=== PATIENT | male | born 1975 | race Caucasian/White ===

== ENCOUNTER 2016-11-27 18:24 | Emergency (ER) | payer SELFPAY ==
[2016-11-27 18:37] VITALS: BP 141/89; BMI 25.0
--- NOTE | 2016-11-27 19:34 | RAD ---
HISTORY: Trauma. Study: Three views of the left foot. Comparison: Left foot series dated October 21, 2010. Findings: Mild degenerative changes are seen about the left foot and ankle. Calcaneal enthesophytes. No acute c ortical disruption or dislocation can be identified. No significant soft tissue swelling or injury c an be seen. IMPRESSION: No acute osseous abnormality. Reported By:
[2016-11-27] MEDS ORDERED: CLEOCIN 300 MG IV PREMIX 300 MG/50 ML BAG IV ONE ×2 (20:17→20:20)
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
[2016-11-27] MEDS ORDERED: CLEOCIN 600 MG IV PREMIX 600 MG/50 ML BAG IV ONE (20:18)
--- NOTE | 2016-11-27 20:19 | RAD ---
HISTORY: Trauma to left leg. Study: Four views of the left tibia/fibula. Comparison: None. Findings: Minimally displaced medial malleolus fracture with associated soft tissue swelling and effusion. The talar dome and ankle mortise appear intact. Remaining osseous structures appear intact. Likely fibrou s talocalcaneal coalition. Calcaneal enthesophyte. IMPRESSION: Medial malleolus fracture as above. Reported By:
[2016-11-27] MEDS ORDERED: NS 1000 ML 1,000 ML ONE (20:20)
[2016-11-27] MEDS ORDERED: CLEOCIN VIAL 600 MG ONE (20:20)
[2016-11-27] MEDS ORDERED: DILAUDID INJ ONE (20:21)
[2016-11-27] MEDS ORDERED: NS 50 ML IV 50 ML IV ONE (20:22)
[2016-11-27 20:44] LABS: BASOPHILS % (AUTO) 0.8 % (0.2-1.0); EOSINOPHILS # (AUTO) 0.2 x10^3/uL (0.0-0.2); EOSINOPHILS % (AUTO) 3.8 % (0.9-2.9); HEMOGLOBIN 11.7 g/dL (13.5-18.0); LYMPHOCYTES # (AUTO) 1.5 X10^3/uL (1.3-2.9); MEAN CORPUSCULAR HEMOGLOBIN 31.1 pg (27.0-34.0); MEAN CORPUSCULAR HGB CONC 34.4 g/dL (33.0-35.0); MEAN CORPUSCULAR VOLUME 90.4 fL (80.0-100.0); MEAN PLATELET VOLUME 7.3 fL (7.4-11.0); MONOCYTES # (AUTO) 0.5 x10^3/uL (0.3-0.8); MONOCYTES % (AUTO) 7.9 % (0.0-13.0); NEUTROPHILS # (AUTO) 3.7 x10^3/uL (2.2-4.8); NEUTROPHILS % (AUTO) 61.5 % (42.0-75.0); PLATELET COUNT 265 X10^3/uL (150.0-450.0); RED BLOOD COUNT 3.76 X10^6/uL (4.7-6.0); RED CELL DISTRIBUTION WIDTH 14.4 % (11.6-16.5)
[2016-11-27] MEDS ORDERED: DILAUDID INJ IVP ONE (20:47)
[2016-11-27 20:51] LABS: BLOOD UREA NITROGEN 11 mg/dL (7-18); CALCIUM 8.5 mg/dL (8.5-10.1); CARBON DIOXIDE 29.9 mmol/L (21-32); CHLORIDE 104 mmol/L (98-107); CREATININE 0.88 mg/dL (0.70-1.30); SODIUM 141 mmol/L (136-145); eGFR BLACK RACES > 60 (>60); eGFR NON BLACK RACES > 60 (>60)
[2016-11-27] MEDS ORDERED: NS 1000 ML 1,000 ML IV SCH (21:00)
--- NOTE | 2016-11-27 22:09 | VAS ---
Exam: Left lower extremity ultrasound exam History: Lower extremity swelling/pain Comparison: None Technique: Real-time duplex scan of the lower extremity venous system was performed using B-mode/zambrano scale imaging, Doppler spectral analysis, and color flow. Findings: Evaluation of the deep veins of the left lower extremity from the common femoral vein thro ugh the popliteal vein demonstrated normal patency and no evidence of DVT. There was normal compress ibility throughout the deep venous system. There was normal augmentation response, Valsalva response , and respiratory phasicity. The deep veins below the knee were patent. Conclusion: Normal left lower extremity venous exam. No evidence of DVT. Reported By:
== END 2016-11-27 22:40 | disposition home or self-care (01) ==
LOC: ER 18:42
DX: S82.52XA Displaced fracture of medial malleolus of left tibia, initial encounter for closed fracture (principal); L03.116 Cellulitis of left lower limb; M77.32 Calcaneal spur, left foot; V03.10XA Pedestrian on foot injured in collision with car, pick-up truck or van in traffic accident, initial encounter
CPT/HCPCS: 36415; 73590; 73630; 80048; 85025; 85378; 87040; 93971; 96365; 96367; 96374; 96375; 99283; A4222; S0077